=== PATIENT | male | born 1965 | race Caucasian/White ===

== ENCOUNTER 2018-12-26 11:04 | Day surgery (SDC) | payer OTHER ==
[~2018-12-26] VITALS: Ht 188 cm; Wt 86.2 kg
[2018-12-26] MEDS ORDERED: ONDANSETRON HCL 4 MG/2 ML VIAL IVP ONE (13:20)
[2018-12-26] MEDS ORDERED: fentaNYL CITRATE 250 MCG/5 ML AMP IV ONE (13:20)
[2018-12-26] MEDS ORDERED: BUPIVACAINE /EPINEPHRINE/PF 0.5% 30 ML VIAL INJ ONE (13:20)
[2018-12-26] MEDS ORDERED: ROCURONIUM BROMIDE 10 MG/ML (ZEMURON) IV ONE (13:20)
[2018-12-26] MEDS ORDERED: SEVOFLURANE 15 MIN GAS INH ONE (13:20)
[2018-12-26] MEDS ORDERED: PROPOFOL 200MG/ 20ML VIAL (DIPRIVAN) IV ONE (13:20)
[2018-12-26] MEDS ORDERED: SUGAMMADEX SODIUM 200 MG/2 ML VIAL IV ONE (13:20)
[2018-12-26] MEDS ORDERED: MIDAZOLAM HCL 5 MG/5 ML VIAL IVP ONE (13:20)
[2018-12-26] MEDS ORDERED: LR 1,000 ML IV.SOLN IV ONE (13:20)
[2018-12-26] MEDS ORDERED: ACETAMINOPHEN/CODEINE 300 MG-30 MG TABLET PO PRN (13:45)
[2018-12-26] MEDS ORDERED: MORPHINE 4 MG/ML INJ. SYRINGE IVP PRN (13:45)
[2018-12-26] MEDS ORDERED: ONDANSETRON HCL 4 MG/2 ML VIAL IVP PRN (13:45)
[2018-12-26] MEDS ORDERED: HYDROmorphone 1 MG INJ. 1 MG/ML AMPUL IVP PRN (14:00)
[2018-12-26] MEDS ORDERED: LR 1,000 ML IV SCH (14:00)
[2018-12-26] MEDS ORDERED: METOCLOPRAMIDE HCL 10 MG/2 ML VIAL IVP PRN (14:00)
[2018-12-26] MEDS ORDERED: HYDROmorphone 2 MG/ML VIAL IVP PRN (14:00)
[2018-12-26] MEDS: HYDROmorphone 1 MG INJ. 1 MG/ML AMPUL IVP PRN ×2 (14:40→14:55)
[2018-12-26] MEDS ORDERED: HYDROmorphone 1 MG INJ. 1 MG/ML AMPUL ONE ×2 (14:55→15:12)
[2018-12-26 16:04] VITALS: BP_SYST 125
[2018-12-26] MEDS ORDERED: ACETAMINOPHEN/CODEINE 300 MG-30 MG TABLET ONE (16:24)
== END 2018-12-26 16:32 | disposition home or self-care (01) ==
LOC: SDS 11:04 → SMU 11:04 → SDS 16:32
PROVIDERS: ATTEND Surgery
DX: K64.8 Other hemorrhoids (principal)
CPT/HCPCS: 88304; C9399; J1170; J2250; J2405; J2704; J3010; J3490; J7120

== ENCOUNTER 2019-01-02 12:01 | Day surgery (SDC) | payer OTHER ==
[~2019-01-02] VITALS: Ht 188 cm; Wt 86.2 kg
[2019-01-02] MEDS ORDERED: CEFAZOLIN SOD 1 GM in D5W 50 ML IV ONE (12:30)
[2019-01-02] MEDS ORDERED: MIDAZOLAM HCL 5 MG/5 ML VIAL IVP ONE ×2 (12:45→14:20)
[2019-01-02] MEDS ORDERED: MORPHINE 2 MG/ML INJ. SYRINGE IVP ONE (12:45)
[2019-01-02] MEDS ORDERED: MIDAZOLAM HCL 2 MG/2 ML VIAL (VERSED) ONE (13:02)
[2019-01-02] MEDS ORDERED: MORPHINE 4 MG/ML INJ. SYRINGE ONE (13:05)
[2019-01-02] MEDS ORDERED: LR 1,000 ML IV.SOLN IV ONE (14:20)
[2019-01-02] MEDS ORDERED: PROPOFOL 200MG/ 20ML VIAL (DIPRIVAN) IV ONE (14:20)
[2019-01-02] MEDS ORDERED: fentaNYL CITRATE 250 MCG/5 ML AMP IV ONE (14:20)
[2019-01-02] MEDS ORDERED: SEVOFLURANE 15 MIN GAS INH ONE (14:20)
[2019-01-02] MEDS ORDERED: ROCURONIUM BROMIDE 10 MG/ML (ZEMURON) IV ONE (14:20)
[2019-01-02] MEDS ORDERED: ONDANSETRON HCL 4 MG/2 ML VIAL IVP ONE (14:20)
[2019-01-02] MEDS ORDERED: NEOSTIGMINE METHYLSULFATE 1 MG/ML, 10 ML VIAL IVP ONE (14:20)
[2019-01-02] MEDS ORDERED: GLYCOPYRROLATE 0.2 MG/ML VIAL IJ ONE (14:20)
[2019-01-02] MEDS ORDERED: POLYMYXIN 500,000/BACIT.10,000 UNITS in NS IRR 1 L IR ONE (14:40)
[2019-01-02] MEDS ORDERED: LR 1,000 ML IV SCH (14:47)
[2019-01-02] MEDS ORDERED: METOCLOPRAMIDE HCL 10 MG/2 ML VIAL IVP PRN (15:00)
[2019-01-02] MEDS ORDERED: HYDROmorphone 2 MG/ML VIAL IVP PRN (15:00)
[2019-01-02] MEDS ORDERED: ONDANSETRON HCL 4 MG/2 ML VIAL IM PRN (15:30)
[2019-01-02] MEDS: HYDROmorphone 1 MG INJ. 1 MG/ML AMPUL IVP PRN ×4 (15:38→16:09)
[2019-01-02] MEDS ORDERED: HYDROmorphone 2 MG/ML VIAL ONE ×2 (15:51→16:15)
[2019-01-02 16:36] VITALS: BP_SYST 132
[2019-01-02] MEDS ORDERED: ACETAMINOPHEN/CODEINE 300 MG-30 MG TABLET PO PRN (19:00)
[2019-01-02] MEDS ORDERED: MORPHINE 4 MG/ML INJ. SYRINGE IVP PRN (19:00)
== END 2019-01-02 17:30 | disposition home or self-care (01) ==
LOC: SDS 12:01 → SMU 12:05 → SDS 17:30
PROVIDERS: ATTEND Surgery
DX: K40.91 Unilateral inguinal hernia, without obstruction or gangrene, recurrent (principal); K66.0 Peritoneal adhesions (postprocedural) (postinfection)
CPT/HCPCS: 49520; C1781; J0690; J1170; J2250; J2270; J2405; J2704; J2710; J3010; J3465; J3490; J7060; J7120